=== PATIENT | female | born 1990 | race Caucasian/White ===

== ENCOUNTER → 2017-04-19 | Outpatient (CLI) | payer MEDICAID ==
[~2017-04-19] MED LIST: CITRTAB16 PO; Docusate Sod/Senna PO; IBUP600 PO; PNVPAK PO
== END ==
LOC: HPND 08:43
PROVIDERS: ATTEND Obstetrics & Gynecology
DX: O35.1XX0 Maternal care for (suspected) chromosomal abnormality in fetus, not applicable or unspecified (principal)
CPT/HCPCS: 76811